=== PATIENT | female | born 1970 | race Hispanic/Latino ===

== ENCOUNTER 2019-10-25 09:26 | Outpatient (CLI) | payer OTHER, SELFPAY ==
--- NOTE | ~2019-10-25 | MM_ITS ---
EXAMINATION: MM screening [facility] BI w symone HISTORY: Screening mammogram TECHNIQUE: Craniocaudal and mediolateral oblique 3-D tomosynthesis images were obtained and synthetic 2-D images were generated. CAD analysis was submitted and interpreted. COMPARISON: 02/22/2018, 02/16/2017, 01/20/2016 BREAST PARENCHYMAL COMPOSITION: The breasts are heterogeneously dense, which may obscure small masses . FINDINGS: There is no evidence of suspicious mass, calcification, or architectural distortion to sugg est malignancy in either breast. There has been no suspicious interval change. IMPRESSION: 1. No mammographic evidence of malignancy. 2. Recommend routine screening mammography in one year. BI-RADS Category 1: Negative Reviewed, dictated and finalized at location A. E PILOT
== END 2019-10-25 09:27 | disposition home or self-care (01) ==
LOC: ANHIMG 09:28
PROVIDERS: PCP Internal Medicine Gastroenterology; Visit Provider Obstetrics & Gynecology Gynecology
DX: Z12.31 Encounter for screening mammogram for malignant neoplasm of breast (principal)
CPT/HCPCS: 77063; 77067

== ENCOUNTER 2019-10-25 10:06 | Outpatient (CLI) | payer OTHER, SELFPAY | END 2019-10-25 10:07 | disposition home or self-care (01) | LOC: ANHAUDIO 10:12 | PROVIDERS: PCP Internal Medicine Gastroenterology | DX: H90.11 Conductive hearing loss, unilateral, right ear, with unrestricted hearing on the contralateral side (principal) | CPT/HCPCS: 92557; 92567 ==

== ENCOUNTER 2019-11-03 12:08 | Emergency (ER) | payer OTHER, SELFPAY ==
--- NOTE | ~2019-11-03 | XR_ITS ---
EXAMINATION: XR lumbar spine min 4V DATE: 11/03/2019 13:33 INDICATION: 2 days of low back pain. TECHNIQUE: Anteroposterior, lateral, and bilateral oblique views of the lumbar spine, and cone-down l ateral view of the lumbosacral junction were obtained. COMPARISON: 02/02/2017 FINDINGS: Normal alignment. Vertebral body and disc heights are normal. No fractures identified. No pars intera rticularis defects. Multilevel bilateral mild lumbar facet osteoarthritis. Sacral arches are intact. Minimal bilateral sacroiliac osteoarthritis. IMPRESSION: 1. Multilevel mild lumbar facet osteoarthritis. No acute osseous abnormality. Reviewed, dictated and finalized at location A. STMENT BANKING MANAGER
[2019-11-03 12:25] VITALS: BP 102/57; PULSE 71; RESP 20; TEMP 37.1; O2SAT 100
[2019-11-03] MEDS: DIAZEPAM 5 MG TABLET PO (13:36)
[2019-11-03] MEDS: KETOROLAC (*BKC) 60 MG/2 ML VIAL IM (13:37)
--- NOTE | 2019-11-03 13:47 | ED.BACK ---
HPI - Back Pain/Injury General Chief Complaint: Back Pain/Injury Stated Complaint: low and mid back pain with leg pain as well Time Seen by Provider: 11/03/19 12:18 Source: patient Mode of arrival: ambulatory Limitations: no limitations History of Present Illness HPI Narrative: Patient is a 49-year-old female who presents to emergency department for evaluation of low back pain for the last several days noting aching pain to the midline lumbar spine that radiates into the bilateral thighs patient denies injury or trauma patient has not taken anything other than ibuprofen for her symptoms patient on arrival presents with normal gait. Related Data Home Medications Medication Instructions Recorded Confirmed ergocalciferol (vitamin D2) 11/03/19 [Vitamin D2] ofloxacin 11/03/19 zolpidem 11/03/19 Allergies Allergy/AdvReac Type Severity Reaction Status Date / Time Penicillins Allergy Unknown Rash Verified 11/03/19 12:36 SEASONAL ALLERGENS AdvReac Unknown Unknown Uncoded 11/03/19 12:36 Review of Systems Review of Systems: All systems reviewed & are unremarkable except as noted in HPI and below PMFSH Surgical History Surgical History (Updated 11/03/19 @ 13:48 by Enzo Fonseca PA-C) History of ear surgery Social History Social History (Updated 11/03/19 @ 13:48 by Enzo Fonseca PA-C) Smoking status: Never smoker Exam Narrative: Exam Narrative: GENERAL: Well-appearing, well-nourished, and in no acute distress. HEAD: Normocephalic, atraumatic. EYES: PERRLA and EOMI. ENT: Nares clear, no rhinorrhea or epistaxis. Mucous membranes moist. CHEST: Clear to auscultation. No respiratory distress. No wheezes rales or rhonchi HEART: Regular rate and rhythm. No murmur heard. EXTREMITIES: Normal range of motion. No edema. Midline lumbar tenderness SKIN: Warm, dry, no rash. NEURO: No focal deficits. Alert and oriented x3. Normal speech and gait. Motor and sensory intact and symmetrical in the extremities PSYCH: Normal mood and affect. Course Course Emergency Course: Patient in the room in no distress aware of case findings treatment plan and diagnosis Vital Signs Vital signs: Vital Signs Temperature 98.7 F 11/03/19 12:25 Pulse Rate 71 11/03/19 12:25 Respiratory Rate 20 11/03/19 12:25 Blood Pressure 102/57 L 11/03/19 12:25 Pulse Oximetry 100 11/03/19 12:25 Temperature 98.7 F 11/03/19 12:25 Pulse Rate 71 11/03/19 12:25 Respiratory Rate 20 11/03/19 12:25 Blood Pressure 102/57 L 11/03/19 12:25 Pulse Oximetry 100 11/03/19 12:25 MDM - Back Pain/Injury MDM Narrative Medical decision making narrative: Patients pain is positional in nature and localized to back without signs of cord compression or cauda equina based on neurological exam, skeletal exam and history. No fever or other significant factors to suggest osteomyelitis or spinal epidural abscess. No symptoms or signs to suggest pain is referred from abdominal or / cardiopulmonary sources. No pulsatile masses noted on exam. Patient ambulates with steady gait and is stable for outpatient management given case findings. Discharge Plan Discharge Clinical Impression: Strain of lumbar region Patient Disposition: Home, Self-Care Condition: Stable Instructions: Antibiotic Form, Acute Low Back Pain (ED) Additional Instructions: Medications as needed and prescribed. Limit lifting and bending. You may apply heat or cold to the area as needed. Follow up with your doctor for further care in the next 7 days. Contact your doctor or return to the emergency department if you develop problems with bladder or bowel function, weakness or loss of feeling in one or both of your legs, or any other serious concerns. Prescriptions: New cyclobenzaprine 10 mg tablet 10 mg PO TID PRN (Reason: muscle spasm) Qty: 14 RF: 0 naproxen 500 mg tablet 500 mg PO BID PRN (Reason: pain) Qty: 7 RF: 0 No Action
== END 2019-11-03 14:30 | disposition home or self-care (01) ==
PROVIDERS: Emergency Provider Emergency Medicine; PCP Internal Medicine Gastroenterology
DX: S39.012A Strain of muscle, fascia and tendon of lower back, initial encounter (principal); X58.XXXA Exposure to other specified factors, initial encounter
CPT/HCPCS: 72110; 96372; 99283; A9270; J1885

== ENCOUNTER 2020-01-20 14:00 | Outpatient (RCR) | payer OTHER, SELFPAY ==
--- NOTE | 2019-12-10 14:29 | PTOPEVAL ---
Thank you for referring this patient to [facility]. Please review, sign, date and return this plan of care CRISTINA. Pt referred to therapy due to back pain. She demonstrates limited and painful trunk motion, muscle weakness of hip and trunk muscles, posture and gt impairments and soft tissue restrictions. She requires additional skilled therapy 2x/wk x 6 wk. I agree with and certify that the following plan of care is medically necessary. Referring Physician Date Attending Provider: Bonita Barba, Referring Provider: *PT Outpatient Evaluation Start: 12/10/19 13:12 Freq: Status: Active Protocol: Document 12/10/19 13:12 [facility] (Rec: 12/10/19 13:56 [facility] [email or web address]) Therapy Assessment Status Assessment Status Assessment Status Evaluation Outpatient Past Medical History Past Medical History Source of Past Medical History Patient,Recalled from Previous Visit, Confirmed with Patient /Family Neurological History Hx Neurological Disorders No Significant History Cardiovascular History Hx Cardiac Disorders No Significant History Gastrointestinal History Hx Gastroesophageal Reflux Disease Yes Musculoskeletal History Hx Back Pain Yes: back and neck pain HEENT History Hx Ear Surgery Yes: x3 Reproductive History Hx Section Yes: x2 Pain History Has Past Pain Affected Your Daily Life Yes Evaluation Information Problem Diagnosis low back pain Onset 08/06 Cause no known injury Additional Evaluation Detail She has received previous therapy for her neck. Inconsistently performs HEP for the neck. Subjective Information Pt was seen in the Ed 11/07 due Query Text:As Reported By Patient/ to increased back pain. She Family reports increased pain with prolonged standing and sitting . She will have increased pain at time with walking. Bending and lifting objects increases her pain. She is able to stand for 2-3 hours then her pain increases. She uses medication as her primary method of managing her pain. The pain will wake her at night. She prefers sidelying sleeping, but often sleeps on her back due to pain. She performs a regular walking program 3-4x/wk for 1 mile.
--- NOTE | 2019-12-26 14:55 | PCPTNOTE ---
Patient called & cancelled scheduled appointment after an hour appointment was scheduled stating she forgot what time her appointment was. Will return for next appointment.
--- NOTE | 2020-01-07 16:24 | PTOPEVAL ---
Thank you for referring Yaritza Tejada to [facility]. Please review, sign, date and return this plan of care CRISTINA. Pt has been seen for 8 PT visits to address her chronic back pain. She is progressing towards her therapy goals with improved trunk motion, improve LE and trunk strength and improved tolerance with daily activities. Cont PT 2x/wk x 3 wk to achieve max function. I agree with and certify that the following plan of care is medically necessary. Referring Physician Date Attending Provider: Bonita Barba, Referring Provider: *PT Outpatient Evaluation Start: 12/10/19 13:12 Freq: Status: Active Protocol: Document 01/07/20 09:03 [facility] (Rec: 01/07/20 09:37 [facility] [email or web address]) Therapy Assessment Status Assessment Status Assessment Status Re-evaluation Evaluation Information Problem Diagnosis low back pain Onset 08/06 Cause no known injury Additional Evaluation Detail She has received previous therapy for her neck. Inconsistently performs HEP for the neck. Subjective Information States her muscles are sore Query Text:As Reported By Patient/ from the new exercises. She Family reports improved eran with sitting, standing and walking activities. She is not performing endurance walking outside of walking for household activities. She will have intermittent pain with lifting objects. 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 Reports left lateral/post knee pain at time with different movement, unsure if it is associated with back motion She is performing her HEP daily. Pain Assessment Timing of Pain Assessment Timing of Pain Assessment Re-assessment Pain Scale Pain Scale Used Numeric (1 - 10) Self Report Pain Assessment Bilateral Lower Back Reported Pain Level 4 Pain Description Aching,Sharp,Tender on Palpation Pain Frequency Chronic,Continuous Lowest Pain Intensity 3 Greatest Pain Intensity 4 Pain Aggravating Factors Changing Position Pain Behaviors None Pain Score Pain Score 4: Self Report Cervical and Lumbar ROM Lumbar ROM Lumbar Flexion Active
--- NOTE | 2020-01-21 12:39 | PTOPEVAL ---
Thank you for referring Yaritza Tejada to [facility]. Please review, sign, date and return this plan of care CRISTINA. Pt has received 12 therapy visits to address back pain. She is indep with a HEP. She demonstrates normal trunk motion and LE strength. She is able to perform her daily activities without increased pain. DC skilled therapy at this time. I agree with and certify that the following plan of care is medically necessary. Referring Physician Date Attending Provider: Bonita Barba, Referring Provider: Discharge Summary *PT Outpatient Evaluation Start: 12/10/19 13:12 Freq: Status: Active Protocol: Document 01/20/20 13:57 [facility] (Rec: 01/20/20 14:38 [facility] [email or web address]) Therapy Assessment Status Assessment Status Assessment Status Re-evaluation Evaluation Information Problem Diagnosis low back pain Onset 08/06 Cause no known injury Additional Evaluation Detail She has received previous therapy for her neck. Inconsistently performs HEP for the neck. Subjective Information States her pain intensity is Query Text:As Reported By Patient/ not as severe or as frequent. Family She notes increased pain with prolonged standing. She is not working right now, therefore her prolonged standing for 4-5 hours is limited. There are times she notes no pain at all. She is better aware of her body mechanics. She reports intermittent back pain with trunk motion, lifting and carrying act. States shoulder pain with side planks exercise. She reports increased left shoulder pain with reaching act. She is performing her HEP daily. She is performing a walking program 3-4x/wk for 20 minutes. States pain will at times go up to a 6/10. She reports at times she has severe leg and back pain with daily activities that require assistance with movement. Pt describes vague symptoms into LE with an occasional numbness into legs, but unable to
== END 2020-01-22 09:03 | disposition home or self-care (01) ==
LOC: ANHPT 14:00
PROVIDERS: PCP Internal Medicine Gastroenterology; Visit Provider Internal Medicine Gastroenterology
DX: M54.5 Low back pain (principal)
CPT/HCPCS: 97014; 97110; 97140; 97162; G0283

== ENCOUNTER 2020-11-11 18:30 | Outpatient (CLI) | payer OTHER, SELFPAY ==
--- NOTE | ~2020-11-11 | XR_ITS ---
EXAMINATION: XR shoulder RT min 2V DATE: 11/11/2020 18:55 INDICATION: Right shoulder pain. TECHNIQUE: 4 views of right shoulder were obtained. COMPARISON: None. FINDINGS: Bone alignment is normal. No fracture. Glenohumeral joint is normal. There is mild acromioc lavicular joint osteoarthritis. IMPRESSION: 1. Mild right acromioclavicular joint osteoarthritis. Reviewed, dictated and finalized at location A. TANK WORKER
--- NOTE | ~2020-11-11 | XR_ITS ---
EXAMINATION: XR shoulder LT min 2V DATE: 11/11/2020 18:55 INDICATION: Left shoulder pain. TECHNIQUE: 4 views of left shoulder were obtained. COMPARISON: None. FINDINGS: Bone alignment is normal. No fracture. Glenohumeral joint is normal. There is mild acromioc lavicular joint osteoarthritis. IMPRESSION: 1. Mild left acromioclavicular joint osteoarthritis. Reviewed, dictated and finalized at location A. SPORT MANAGER
== END 2020-11-11 18:31 | disposition home or self-care (01) ==
PROVIDERS: PCP Internal Medicine Gastroenterology; Visit Provider Internal Medicine Gastroenterology
DX: M19.012 Primary osteoarthritis, left shoulder (principal); M19.011 Primary osteoarthritis, right shoulder
CPT/HCPCS: 73030

== ENCOUNTER 2020-11-16 08:54 | Outpatient (CLI) | payer OTHER, SELFPAY ==
--- NOTE | ~2020-11-16 | MM_ITS ---
EXAMINATION: MM screening [facility] BI w symone HISTORY: Screening TECHNIQUE: Craniocaudal and mediolateral oblique 3-D tomosynthesis images were obtained and synthetic 2-D images were generated. CAD analysis was submitted and interpreted. COMPARISON: Comparison to multiple prior studies sequentially, with oldest reviewed study dated 05/2013. BREAST PARENCHYMAL COMPOSITION: The breasts are heterogeneously dense, which may obscure small masses . FINDINGS: There is no evidence of suspicious mass, calcification, or architectural distortion to sugg est malignancy in either breast. There has been no suspicious interval change. IMPRESSION: 1. No mammographic evidence of malignancy. 2. Recommend routine screening mammography in one year. BI-RADS Category 1: Negative Reviewed, dictated and finalized at location A. NTIFIC EDITOR
== END 2020-11-16 08:55 | disposition home or self-care (01) ==
LOC: ANHIMG 08:58
PROVIDERS: PCP Internal Medicine Gastroenterology; Visit Provider Obstetrics & Gynecology Gynecology
DX: Z12.31 Encounter for screening mammogram for malignant neoplasm of breast (principal)
CPT/HCPCS: 77063; 77067

== ENCOUNTER 2021-10-05 15:10 | Emergency (ER) | payer OTHER, SELFPAY ==
[2021-10-05 15:20] VITALS: BP 117/64; PULSE 82; RESP 16; TEMP 37.1; O2SAT 98
--- NOTE | 2021-10-05 15:21 | ED.URI ---
HPI - URI/Sore Throat General Chief Complaint: Upper Respiratory Infection Stated Complaint: Headache,Sore throat Time Seen by Provider: 10/05/21 15:21 Source: patient, RN notes reviewed and old records reviewed Mode of arrival: ambulatory Limitations: no limitations History of Present Illness HPI Narrative: 51-year-old female presents to the [facility] with complaints of a headache, body aches and a sore throat for the last few days. Has taken Tylenol but still not feeling better. States she had a fever couple of days ago. Patient is not flu nor COVID vaccinated MD elicited complaint: sore throat Related Data Home Medications Medication Instructions Recorded Confirmed ergocalciferol (vitamin D2) 11/03/19 [Vitamin D2] zolpidem 11/03/19 bromocriptine mg 10/05/21 Allergies Allergy/AdvReac Type Severity Reaction Status Date / Time Penicillins Allergy Unknown Rash Verified 11/03/19 12:36 SEASONAL ALLERGENS AdvReac Unknown Unknown Uncoded 11/03/19 12:36 Review of Systems Review of Systems: All systems reviewed & are unremarkable except as noted in HPI and below Constitutional: Constitutional: Reports as per HPI, Denies chills, Reports fatigue, Denies fever(s) and Denies headache(s) Eyes: Eyes: Reports no additional eye complaints ENT: Reports as per HPI, Denies vertigo, Denies dizziness, Denies headache(s), Denies nasal congestion and Reports sore throat Cardiovascular: Cardiovascular: Reports no additional cardiovascular complaints, Denies chest pain, Denies syncope, Denies rapid heart rate and Denies dyspnea Respiratory: Respiratory: Reports no additional respiratory complaints, Denies cough, Denies dyspnea and Denies wheezing Gastrointestinal: Gastrointestinal: Reports no additional gastrointestinal complaints, Denies abdominal pain, Denies diarrhea, Denies nausea and Denies vomiting Musculoskeletal: Musculoskeletal: Reports as per HPI, Denies back pain, Reports myalgias and Denies numbness Integumentary/Breasts: Skin/Breast: Reports system reviewed and no additional complaints, except as docu and Denies rash Neurologic: Reports system reviewed and no additional complaints, except as documented, Denies vertigo, Denies dizziness, Denies syncope, Denies headache(s), Denies focal weakness and Denies numbness Psychiatric: Psychiatric: Reports no additional psychiatric complaints Allergic/Immunologic: Allergic/Immunologic: Reports no additional allergic/immunologic complaints and Denies wheezing PMFSH Past Medical History Medical History Vitamin D deficiency Surgical History Surgical History History of ear surgery Social History Social History Smoking status: Never smoker Comments At the time of my signature, I reviewed and agree with the nursing past medical, surgical, social, and family history. There is no relevant family history pertinent to the patient complaint. Exam Const: General: cooperative, no acute distress, well developed, alert and ill appearing acutely (mild) Nutritional Appearance: well nourished Orientation/consciousness: patient oriented x3 Limitations: no limitations HENMT: Head: normal to inspection Ears: external ears normal, TM's normal bilaterally and EAC's normal General nose exam: Normal external nose present, Normal nares present and Normal nasal mucous membranes and turbinates present Face and sinus: normal facial exam Mouth: Yes Normal oral and palatal mucosa present and Yes moist mucous membranes Throat: posterior oropharynx normal, tonsils normal, uvula midline and no uvular edema Eyes: Conjunctivae: conjunctivae normal Pupils: Equal, round and reactive pupils present Neck: Neck: normal visual inspection, no lymphadenopathy and no meningeal signs Chest: Chest palpation & inspection: normal inspection of the chest Resp:
[2021-10-05 15:22] VITALS: BP 117/64; PULSE 82; RESP 16; TEMP 37.1; O2SAT 98
--- NOTE | 2021-10-05 15:45 | PC.NURSE ---
1537 anius called for spec. p/u
[2021-10-06 21:10] LABS: SARS-CoV-2 RNA PCR Positive
== END 2021-10-05 15:57 | disposition home or self-care (01) ==
PROVIDERS: Emergency Provider Nurse Practitioner; PCP Internal Medicine Gastroenterology
DX: U07.1 COVID-19 (principal); E55.9 Vitamin D deficiency, unspecified
CPT/HCPCS: 87804; 87880; 99213; C9803; G0463; U0003; U0005

== ENCOUNTER 2021-10-07 17:57 | Emergency (ER) | payer OTHER, SELFPAY ==
[2021-10-07] VITALS (7 sets, daily range): BP systolic 102–120; BP diastolic 55–67; PULSE 82–89; RESP 16–23; TEMP 37.2; O2SAT 95–100
--- NOTE | ~2021-10-07 | XR_ITS ---
EXAMINATION: XR chest 1V portable INDICATION: Shortness of breath, COVID 19 TECHNIQUE: Portable AP chest at 2126 hours COMPARISON: None available FINDINGS: There are patchy airspace opacities throughout all lung zones. There is no pleural effusion or pneumothorax. The cardiomediastinal silhouette is normal. IMPRESSION: 1. Diffuse lung disease in a pattern consistent with COVID 19 pneumonia. Reviewed, dictated and finalized at location F. STOCK DEALER
--- NOTE | 2021-10-07 20:41 | ECG_ITS ---
Measurements Intervals [place] Rate: 82 P: 47 [place]: 135 QRS: 39 QRSD: 111 T: 46 QT: 357 QTc: 419 Interpretive Statements SINUS RHYTHM POSSIBLE LEFT ATRIAL ENLARGEMENT INCOMPLETE RIGHT BUNDLE BRANCH BLOCK BORDERLINE T WAVE ABNORMALITY- ANTERIOR LEADS BASELINE ARTIFACT- I, II, III, AVR, AVL, AVF, V1, V3-V6 BORDERLINE ECG Electronically Signed On 10-11-2021 12:57:34 BILLER by Benjamin Gonzalez D.O.
--- NOTE | 2021-10-07 21:09 | ED.GENADULT ---
HPI - General Adult General Chief complaint: Upper Respiratory Infection Stated complaint: STREP AND COVID+ Time Seen by Provider: 10/07/21 20:53 Source: patient Mode of arrival: ambulatory Limitations: no limitations History of Present Illness HPI narrative: Patient is 51 years old, unvaccinated, tested positive for COVID today. Patient presents with general body aches, not feeling well, headache, sore throat, coughin, nausea, vomiting once today. Patient had a diagnosis of strep throat 2 days ago and was a started on Z-Cas. Patient denies any shortness of breath or chest pain. Related Data Home Medications Medication Instructions Recorded Confirmed ergocalciferol (vitamin D2) 11/03/19 [Vitamin D2] zolpidem 11/03/19 bromocriptine mg 10/05/21 Allergies Allergy/AdvReac Type Severity Reaction Status Date / Time Penicillins Allergy Unknown Rash Verified 10/07/21 20:20 SEASONAL ALLERGENS AdvReac Unknown Unknown Uncoded 10/07/21 20:20 Review of Systems Review of Systems: CONSTITUTIONAL: Denies fever, chills, or sweats. EYES: Denies visual changes, redness, or discharge. ENT: Denies rhinorrhea, congestion, sore throat, or otalgia. CARDIOVASCULAR: Denies chest pain, palpitations, or edema. RESPIRATORY: Denies cough or dyspnea. GASTROINTESTINAL: Denies abdominal pain, nausea, vomiting, or diarrhea. GENITOURINARY: Denies dysuria or hematuria. SKIN: Denies rash or itching. MUSCULOSKELETAL: Denies back pain, joint pain, or myalgia. NEUROLOGIC: Denies headache, numbness, or weakness. PSYCHIATRIC: Denies anxiety or depression. PMFSH Past Medical History Medical History Vitamin D deficiency Surgical History Surgical History History of ear surgery Social History Social History Smoking status: Never smoker Exam Narrative: General appearance: Well-developed, well-nourished Skin: Normal color Head: Normocephalic, nontraumatic Eyes: Clear conjunctiva ENT: Oropharynx normal, ears normal, nose normal Neck: Supple, nontender Chest and respiratory: Airway patent, no respiratory distress, no accessory muscle use Heart: Regular rate/rhythm Abdomen: Soft, nontender, no organomegaly, quiet bowel sounds Vascular: Normal peripheral pulses, normal capillary refill. Musculoskeletal: Normal range of motion, nontender back Neurologic: Alert and oriented ?3, RESPIRATORY CARE PRACTITIONER is normal as tested, no gross motor deficit Course Course Emergency Course: Stable Vital Signs Vital signs: Vital Signs Temperature 37.2 C 10/07/21 18:07 Pulse Rate 89 10/07/21 18:07 Respiratory Rate 18 10/07/21 18:07 Blood Pressure 108/67 10/07/21 18:07 Pulse Oximetry 99 10/07/21 18:07 Temperature 37.2 C 10/07/21 18:07 Pulse Rate 83 10/07/21 22:46 Respiratory Rate 16 10/07/21 22:46 Blood Pressure 109/63 10/07/21 22:46 Pulse Oximetry 95 10/07/21 22:46 Medical Decision Making Vital Signs Vital Signs: Vital Signs Temperature 37.2 C 10/07/21 18:07 Pulse Rate 89 10/07/21 18:07 Respiratory Rate 18 10/07/21 18:07 Blood Pressure 108/67 10/07/21 18:07 Pulse Oximetry 99 10/07/21 18:07 Temperature 37.2 C 10/07/21 18:07 Pulse Rate 83 10/07/21 22:46 Respiratory Rate 16 10/07/21 22:46 Blood Pressure 109/63 10/07/21 22:46 Pulse Oximetry 95 10/07/21 22:46 ABG Data ABG results: 10/07/21 22:15 Puncture Site Right brachial ABG pH 7.500 H ABG pCO2 29.9 L ABG pO2 83.7 ABG PO2/FiO2 Ratio 3.99 ABG HCO3 22.8 ABG O2 Saturation 97.1 ABG O2 C
[2021-10-07 22:36] LABS: Alveolar/Arterial O2 Gradient 30.2 mmHg; Base Excess ABG 0.5 mEq/l (+/-2.0); Fractional Inspired Oxygen 21 %; HCO3 ABG 22.8 mEq/l (22.0-26.0); Modified Allen's Test Pass; Oxygen Content ABG 17.2 %vol (16.0-22.0); Oxygen Saturation ABG 97.1 % (95.0-100.0); Oxyhemoglobin 95.8 % THb (90.0-100.0); PCO2 ABG 29.9 mmHg (35.0-45.0); PO2 ABG 83.7 mmHg (80.0-100.0); PO2 FiO2 Ratio Arterial Blood 3.99 %; Site Drawn RIGHT BRACHIAL; Total Hemoglobin 12.7 g/dL (12.0-18.0)
[2021-10-07 22:37] LABS: Device ROOM AIR
== END 2021-10-07 23:50 | disposition home or self-care (01) ==
PROVIDERS: Emergency Provider Emergency Medicine; PCP Internal Medicine Gastroenterology
DX: U07.1 COVID-19 (principal); J12.82 Pneumonia due to coronavirus disease 2019
CPT/HCPCS: 36600; 71045; 82805; 93005; 99283

== ENCOUNTER 2022-01-19 11:57 | Outpatient (CLI) | payer OTHER, SELFPAY ==
--- NOTE | ~2022-01-19 | MM_ITS ---
EXAMINATION: MM screening [facility] BI w symone HISTORY: Screening mammogram TECHNIQUE: Craniocaudal and mediolateral oblique 3-D tomosynthesis images were obtained and synthetic 2-D images were generated. CAD analysis was submitted and interpreted. COMPARISON: 11/16/2020, 10/25/2019, 02/22/2018 bilateral screening mammogram examinations BREAST PARENCHYMAL COMPOSITION: The breasts are heterogeneously dense, which may obscure small masses . FINDINGS: There is no evidence of suspicious mass, calcification, or architectural distortion to sugg est malignancy in either breast. There has been no suspicious interval change. IMPRESSION: 1. No mammographic evidence of malignancy. 2. Recommend routine screening mammography in one year. BI-RADS Category 1: Negative Reviewed, dictated and finalized at location A.
== END 2022-01-19 11:58 | disposition home or self-care (01) ==
LOC: ANHIMG 11:59
PROVIDERS: PCP Internal Medicine Gastroenterology; Visit Provider Obstetrics & Gynecology Gynecology
DX: Z12.31 Encounter for screening mammogram for malignant neoplasm of breast (principal)
CPT/HCPCS: 77063; 77067

== ENCOUNTER 2022-08-07 14:24 | Emergency (ER) | payer OTHER, SELFPAY ==
[2022-08-07 16:15] VITALS: BP 111/50; PULSE 73; RESP 12; TEMP 36.5; O2SAT 100
--- NOTE | 2022-08-07 16:30 | ED.GENADULT ---
HPI - General Adult General Chief complaint: Upper Respiratory Infection Stated complaint: uri Time Seen by Provider: 08/07/22 16:30 Source: patient Mode of arrival: ambulatory Limitations: no limitations History of Present Illness HPI narrative: 51-year-old female patient presents to the [facility] with complaints of right ear pain, sore throat and runny nose. Patient states she has had some right ear pain drainage that started yesterday. Patient states she has had cold symptoms for about a week but recently just started having right ear pain. Patient states she has had surgery to the right ear before in the past. Patient denies any fevers, body aches or chills. Related Data Home Medications Medication Instructions Recorded Confirmed ergocalciferol (vitamin D2) 1,250 1,250 mcg PO WEEKLY 11/03/19 08/07/22 mcg (50,000 unit) capsule (Vitamin D2) zolpidem 5 mg tablet 5 mg PO DAILY 11/03/19 08/07/22 bromocriptine 2.5 mg tablet 2.5 mg PO DAILY 10/05/21 08/07/22 Allergies Allergy/AdvReac Type Severity Reaction Status Date / Time Penicillins Allergy Intermediate Rash Verified 08/07/22 16:07 Review of Systems Review of Systems: CONSTITUTIONAL: Denies fever, chills, or sweats. EYES: Denies visual changes, redness, or discharge. ENT: Denies rhinorrhea, congestion, sore throat, positive right ear pain. CARDIOVASCULAR: Denies chest pain, palpitations, or edema. RESPIRATORY: Denies cough or dyspnea. GASTROINTESTINAL: Denies abdominal pain, nausea, vomiting, or diarrhea. GENITOURINARY: Denies dysuria or hematuria. SKIN: Denies rash or itching. MUSCULOSKELETAL: Denies back pain, joint pain, or myalgia. NEUROLOGIC: Denies headache, numbness, or weakness. PSYCHIATRIC: Denies anxiety or depression. PENDING SALE TO [facility] Past Medical History Medical History Vitamin D deficiency Surgical History Surgical History History of ear surgery Social History Social History Smoking status: Never smoker Comments At the time of my signature I agree with nursing past medical history, surgical, social, and family history. There is no relevant family history pertinent to the presenting complaint. Exam Narrative: GENERAL: Well-appearing, well-nourished, and in no acute distress. HEAD: Normocephalic, atraumatic. EYES: PERRLA and EOMI. ENT: Nares clear, no rhinorrhea or epistaxis. Mucous membranes moist. Posterior pharynx with no erythema, tonsillar enlargement, exudates or lesions present. The right ear does have some pus in the canal with some erythema and pus noted behind the TM. NECK: Supple. No lymphadenopathy CHEST: Clear to auscultation. No respiratory distress. HEART: Regular rate and rhythm. No murmur heard. Normal peripheral pulses. ABDOMEN: Soft, nontender, nondistended, normal active bowel sounds. EXTREMITIES: Normal range of motion. No edema. SKIN: Warm, dry, no rash. NEURO: No focal deficits. Alert and oriented x3. Course Course Level of Care: Express Care Visit Vital Signs Vital signs: Vital Signs Temperature 36.5 C 08/07/22 16:15 Pulse Rate 73 08/07/22 16:15 Respiratory Rate 12 08/07/22 16:15 Blood Pressure 111/50 L 08/07/22 16:15 Pulse Oximetry 100 08/07/22 16:15 Temperature 36.5 C 08/07/22 16:15 Pulse Rate 73 08/07/22 16:15 Respiratory Rate 12 08/07/22 16:15 Blood Pressure 111/50 L 08/07/22 16:15 Pulse Oximetry 100 08/07/22 16:15 Vital signs reviewed. Medical Decision Making MDM Narrative Medical decision making narrative: Discussed with patient does appear that she has not enter into an outer ear infection of the right ear. Plan of care for patient is discharge home with antibiotic ear drops and oral antibiotic. Discussed with patient she can take Tylenol and ibuprofen as needed for pain. Discussed with patient a
== END 2022-08-07 16:46 | disposition home or self-care (01) ==
PROVIDERS: Emergency Provider Nurse Practitioner Family; PCP Internal Medicine Gastroenterology
DX: H66.91 Otitis media, unspecified, right ear (principal); H60.91 Unspecified otitis externa, right ear; E55.9 Vitamin D deficiency, unspecified
CPT/HCPCS: 99213; G0463

== ENCOUNTER 2022-12-30 09:11 | Outpatient (CLI) | payer OTHER, SELFPAY ==
--- NOTE | ~2022-12-30 | CT_ITS ---
EXAMINATION: CT IAC/mastoids BI wo con DATE: 12/30/2022 09:35 INDICATION: Bilateral hearing loss. TECHNIQUE: Computed tomography (CT) of the temporal bones was performed without intravenous contrast. Automated exposure control and iterative reconstruction technique were employed. The dose-length pro duct was 335.94 mGy-cm. COMPARISON: Head CT 10/11/2016 FINDINGS: RIGHT TEMPORAL BONE: The internal auditory canal, cochlea, vestibule, and circular canals, vestibular aqueduct, carotid ca nal, jugular bulb, and facial nerve course is normal. There is complete opacification of the right ma stoid air cells, which are small. There is material in the tympanic cavity including around the ossic les and in Prussak space. There is a 3 mm density that is contiguous with hamate at the inferior aspe ct of the ossicles. There is dehiscence of tegmen tympani. There is thickening of the tympanic membra ne. The external auditory canal is normal. LEFT TEMPORAL BONE: The internal auditory canals, cochlea, vestibule, semicircular canals, vestibular aqueduct, carotid c anal, jugular bulb, facial nerve course, ossicles, tympanic membrane, Prussak space, scutum, external auditory canal, and the mastoid air cells are normal. IMPRESSION: 1. Chronic right-sided otomastoid effusion. 2. 3 mm density that is contiguous with hamate at the inferior aspect of the ossicles, which may be h eterotopic ossification. 3. Normal left temporal bone. Reviewed, dictated and finalized at location A. IMPRESSION: 1. Chronic right-sided otomastoid effusion. 2. 3 mm density that is contiguous with hamate at the inferior aspect of the os sicles, which may be heterotopic ossification. 3. Normal left temporal bone.
== END 2022-12-30 09:12 | disposition home or self-care (01) ==
PROVIDERS: PCP Internal Medicine Gastroenterology; Visit Provider Nurse Practitioner Family
DX: H74.8X1 Other specified disorders of right middle ear and mastoid (principal)
CPT/HCPCS: 70480

== ENCOUNTER 2023-01-24 01:51 | Day surgery (SDC) | payer OTHER, SELFPAY ==
[2023-01-12 11:26] VITALS: BMI 25.6
[2023-01-24 11:38] VITALS: BP 126/50; PULSE 83; RESP 16; TEMP 36.4; O2SAT 100
[2023-01-24] MEDS: LACTATED RINGERS 1,000 ML 150 ML IV CONT (11:44)
--- NOTE | 2023-01-24 11:44 | P.HP_ITS ---
History of Present Illness History of Present Illness Consent: Risks, benefits, and alternatives have been discussed and questions answered. Patient agrees to proceed with procedure. Chief complaint: other fecal abnormalities Narrative: Yaritza Erickson is a 52 year old female Presents for colonoscopy. Patient recently had Cologuard test that was found to be positive. Patient denies any obvious blood in her stools. Her bowel habits apparently are normal. She has occasional bloating. Family history noncontributory. Review of Systems Review of Systems: Review of systems noncontributory. [facility] Past Medical History Medical History Vitamin D deficiency Surgical History Surgical History History of ear surgery Social History Social History Smoking status: Never smoker Meds Home Medications and Allergies Home Medications Medication Instructions Recorded Confirmed Type ergocalciferol (vitamin D2) 1,250 1,250 mcg PO WEEKLY 11/03/19 01/12/23 History mcg (50,000 unit) capsule (Vitamin D2) zolpidem 5 mg tablet (Ambien) 5 mg PO DAILY 11/03/19 01/12/23 History bromocriptine 2.5 mg tablet 2.5 mg PO DAILY 10/05/21 01/12/23 History ofloxacin 0.3 % ear drops 10 drp RIGHT EAR DAILY 7 days #10 08/07/22 01/12/23 Rx mL Allergies Allergy/AdvReac Type Severity Reaction Status Date / Time Penicillins Allergy Intermediate Rash Verified 01/24/23 11:37 Vital Signs Vital Signs - 24 hr 01/24/23 11:38 Temperature 97.6 F Pulse Rate 83 Respiratory Rate 16 Blood Pressure 126/50 L Pulse Oximetry 100 Oxygen Delivery Room Air Exam Narrative: Physical exam reveals patient be alert. Vital signs stable. HEENT exam is unremarkable. Patient is anicteric. Lungs are clear to auscultation and percussion. Heart is without murmur or extra sounds. Abdomen bowel sounds are present soft nontender with no organomegaly. Digital external rectal exam is normal. Assessment and Plan Assessment and plan (1) Positive colorectal cancer screening using Cologuard test: Code(s): R19.5 - Other fecal abnormalities Status: Acute Assessment and Plan: Patient's Cologuard screening test was positive. For this reason colonoscopy will be performed today.
--- NOTE | 2023-01-24 11:49 | P.PNAN_ITS ---
Anes - Initial Pre Proc Eval Procedure: Operation Date: 01/24/23 13:00 Proposed Procedures p Colonoscopy - Connor Zavala MD Date/Time: 01/24/23 11:49 Surgeon: Connor Zavala MD Pre Op Diagnosis: other fecal abnormalities Patient Data Age: 52 Gender: F Height: 1.57 m Weight: 62.2 kg Last Vital Signs Temp 97.6 F 01/24/23 11:38 Pulse 83 01/24/23 11:38 Resp 16 01/24/23 11:38 BP 126/50 L 01/24/23 11:38 Pulse Ox 100 01/24/23 11:38 O2 Del Method Room Air 01/24/23 11:38 Allergies Allergy/AdvReac Type Severity Reaction Status Date / Time Penicillins Allergy Intermediate Rash Verified 01/24/23 11:37 Home Medications Medication Instructions Recorded Confirmed Type ergocalciferol (vitamin D2) 1,250 1,250 mcg PO WEEKLY 11/03/19 01/12/23 History mcg (50,000 unit) capsule (Vitamin D2) zolpidem 5 mg tablet (Ambien) 5 mg PO DAILY 11/03/19 01/12/23 History bromocriptine 2.5 mg tablet 2.5 mg PO DAILY 10/05/21 01/12/23 History ofloxacin 0.3 % ear drops 10 drp RIGHT EAR DAILY 7 days #10 08/07/22 01/12/23 Rx mL Patient hx anesthesia problems: none Family hx anesthesia problems: none Results Review: All pre-operative results and documents have been reviewed as part of the pre- operative evaluation. [facility] Past Medical History Medical History Vitamin D deficiency Surgical History Surgical History History of ear surgery Social History Social History Smoking status: Never smoker Anes - Eval Final PreProcedure Day of Procedure 01/24/23 11:49 Patient weight: normal Heart: regular rate and rhythm Lungs: clear to auscultation Airway: Mallampati scale class II Neurological: alert and oriented Last oral intake: >/= 8 hours ASA classification: II Emergent: no Anesthetic plan: proceed Anesthesia type and monitoring: general GIVS and standard monitoring Results Review: All pre-operative results and documents have been reviewed as part of the pre- operative evaluation. Informed Consent: The patient's anesthetic plan and its attendant risks and benefits were discussed with the patient/family/POA. Questions were solicited and answers provided to the satisfaction of the patient/family/POA.
--- NOTE | 2023-01-24 11:55 | WPDANESEPPF ---
Anes - Initial Pre Proc Eval Procedure: Operation Date: 01/24/23 13:00 Proposed Procedures p Colonoscopy - Connor Zavala MD Date/Time: 01/24/23 11:55 Surgeon: Connor Zavala MD Pre Op Diagnosis: other fecal abnormalities Patient Data Age: 52 Gender: F Height: 1.57 m Weight: 62.2 kg Last Vital Signs Temp 97.6 F 01/24/23 11:38 Pulse 83 01/24/23 11:38 Resp 16 01/24/23 11:38 BP 126/50 L 01/24/23 11:38 Pulse Ox 100 01/24/23 11:38 O2 Del Method Room Air 01/24/23 11:38 Allergies Allergy/AdvReac Type Severity Reaction Status Date / Time Penicillins Allergy Intermediate Rash Verified 01/24/23 11:37 Home Medications Medication Instructions Recorded Confirmed Type ergocalciferol (vitamin D2) 1,250 1,250 mcg PO WEEKLY 11/03/19 01/12/23 History mcg (50,000 unit) capsule (Vitamin D2) zolpidem 5 mg tablet (Ambien) 5 mg PO DAILY 11/03/19 01/12/23 History bromocriptine 2.5 mg tablet 2.5 mg PO DAILY 10/05/21 01/12/23 History ofloxacin 0.3 % ear drops 10 drp RIGHT EAR DAILY 7 days #10 08/07/22 01/12/23 Rx mL Patient hx anesthesia problems: none Family hx anesthesia problems: none Results Review: All pre-operative results and documents have been reviewed as part of the pre-operative evaluation. [facility] Past Medical History Medical History Vitamin D deficiency Surgical History Surgical History History of ear surgery Social History Social History Smoking status: Never smoker Anes - Eval Final PreProcedure Day of Procedure 01/24/23 11:55 Patient weight: normal Heart: regular rate and rhythm Lungs: clear to auscultation Airway: Mallampati scale class II Neurological: alert and oriented Last oral intake: >/= 8 hours ASA classification: II Emergent: no Anesthetic plan: proceed Anesthesia type and monitoring: general GIVS and standard monitoring Results Review: All pre-operative results and documents have been reviewed as part of the pre-operative evaluation. Informed Consent: The patient's anesthetic plan and its attendant risks and benefits were discussed with the patient/family/POA. Questions were solicited and answers provided to the satisfaction of the patient/family/POA.
[2023-01-24 12:32] VITALS: BP 79/41; PULSE 76; RESP 16; O2SAT 99
[2023-01-24 12:42] VITALS: BP 101/59; PULSE 80; RESP 18; O2SAT 99
[2023-01-24 12:52] VITALS: BP 106/62; PULSE 80; RESP 18; O2SAT 99
== END 2023-01-24 12:58 | disposition home or self-care (01) ==
PROVIDERS: PCP Internal Medicine Gastroenterology; Referring Provider Obstetrics & Gynecology Gynecology; Visit Provider Internal Medicine Gastroenterology
PROC: 0DJD8ZZ Inspection of Lower Intestinal Tract, Via Natural or Artificial Opening Endoscopic (ICD-10-PCS; CPT 45378; principal; 2023-01-24 13:00)
DX: R19.5 Other fecal abnormalities (principal); K64.8 Other hemorrhoids; E55.9 Vitamin D deficiency, unspecified
CPT/HCPCS: 45378; J2704; J7120

== ENCOUNTER 2023-03-10 10:02 | Outpatient (CLI) | payer OTHER, SELFPAY ==
--- NOTE | ~2023-03-10 | MM_ITS ---
EXAMINATION: MM screening jessika BI w symone HISTORY: Screening mammogram TECHNIQUE: Craniocaudal and mediolateral oblique 3-D tomosynthesis images were obtained and synthetic 2-D images were generated. CAD analysis was submitted and interpreted. COMPARISON: 01/19/2022, 11/16/2020, 10/25/2019 bilateral screening mammogram examinations BREAST PARENCHYMAL COMPOSITION: The breasts are heterogeneously dense, which may obscure small masses . FINDINGS: Subtle microcalcifications noted in the very posterior central left breast on MLO view; briana gnostic left mammogram with magnification views is recommended. Otherwise no suspicious mass, architectural distortion, malignant calcification, skin thickening or r etraction of either breast is detected. IMPRESSION: 1. Subtle microcalcification suggested at the very posterior central left breast on MLO view 2. Diagnostic left mammogram with magnification views is recommended BI-RADS Category 0: Incomplete: Needs additional imaging evaluation. Reviewed, dictated and finalized at location A. IMPRESSION: 1. Subtle microcalcification suggested at the very posterior central left breas t on MLO view 2. Diagnostic left mammogram with magnification views is recommended BI-RADS Category 0: Incomplete: Needs additional imaging evaluation.
--- NOTE | ~2023-03-10 | DEXA_ITS ---
Bone Density Report Name: AIMEE WILKES Age: 52 Sex: Female Ethnicity: White Date of : 1970 Indication: postmenopausal; screening for osteoporosis; height loss; Referring Provider: ERNESTO ROBLEDO Study: Bone densitometry was performed. Exam Date: March 10, 2023 Accession number: [id number] Bone Density: Region BMD T-score Z-score Classification AP Spine(L1-L4) 0.796 -2.3 -1.3 Osteopenia Femoral Neck (Left) 0.683 -1.5 -0.5 Osteopenia Total Hip (Left) 0.786 -1.3 -0.6 Osteopenia Femoral Neck (Right) 0.683 -1.5 -0.5 Osteopenia Total Hip (Right) 0.795 -1.2 -0.6 Osteopenia Total Hip Mean 0.790 -1.3 -0.6 Osteopenia World Health Organization criteria for BMD impression classify patients as: Normal (T-score at or above -1.0), Osteopenia (T-score between -1.0 and -2.5), or Osteoporosis (T-score at or below -2.5). 10-year Fracture Risk(1): Major Osteoporotic Fracture 5.9% Hip Fracture 0.4% Reported Risk Factors: [place] (), Neck BMD=0.683, BMI=36.5 (1) FRAX(R) Version 3.08. Fracture probability calculated for an untreated patient. Fracture probability may be lower if the patient has received treatment. Clinical Information Provided by Patient: Has used the following medications: Vitamin D Patient maximum height was 62 Menopause Age: 50 No regular weight bearing exercise Onset of menses at age 10 Number of children 3 Impression: The patient has low bone mass, based on the Total Spine T-score. The patient has an estimated ten-year risk of hip fracture of 0.4% and an estimated ten-year risk of major fracture of 5.9%, based on the WHO FRAX algorithm. Discussion: BONE DENSITY IS LOW AT ONE OR MORE SKELETAL SITES. This patient's lowest T-score is low at one or more skeletal sites. It meets the World Health Organization's (WHO) criteria for ?low bone mass? (T-score between -1.0 and -2.5). The patient's 10-year risk of fracture as calculated by FRAX is less than the threshold where pharmacological therapy is recommended by the National Osteoporosis Foundation (NOF). However, all treatment decisions require clinical judgment and consideration of individual patient factors, including patient preferences, comorbidities, previous drug use, risk factors not captured in the FRAX model (e.g., frailty, falls, vitamin D deficiency, increased bone turnover, interval significant decline in bone density) and possible under or overestimation of fracture risk by FRAX. The patient should follow a healthful lifestyle (good nutrition with adequate calcium and vitamin D, and appropriate weight-bearing exercise). Follow-Up: Consider repeating this study in 2 to 3 years to reassess this patient's status, or sooner if there is some new clinical indication. Reported by: PALMIRA on 03/10/2023 1
== END 2023-03-10 10:03 | disposition home or self-care (01) ==
LOC: ANHIMG 10:05
PROVIDERS: PCP Internal Medicine Gastroenterology; Visit Provider Obstetrics & Gynecology Gynecology
DX: Z12.31 Encounter for screening mammogram for malignant neoplasm of breast (principal); Z78.0 Asymptomatic menopausal state; R92.8 Other abnormal and inconclusive findings on diagnostic imaging of breast; M85.88 Other specified disorders of bone density and structure, other site; M85.852 Other specified disorders of bone density and structure, left thigh; M85.851 Other specified disorders of bone density and structure, right thigh
CPT/HCPCS: 77063; 77067; 77080

== ENCOUNTER 2023-04-13 11:52 | Outpatient (CLI) | payer OTHER, SELFPAY ==
--- NOTE | ~2023-04-13 | MM_ITS ---
EXAMINATION: MM diagnostic mammo unilat LT HISTORY: Left breast calcifications on screening mammogram TECHNIQUE: Magnification views of the left breast were performed and synthetic 2-D images were genera preeti. CAD analysis was submitted and interpreted. COMPARISON: 03/10/2023, 01/19/2022, 11/16/2020 BREAST PARENCHYMAL COMPOSITION: The breasts are heterogeneously dense, which may obscure small masses . FINDINGS: No suspicious calcifications are identified with magnification views of the left breast. No mass or architectural distortion are identified. IMPRESSION: 1. No mammographic evidence of malignancy. 2. Recommend routine screening mammography in one year. BI-RADS Category 1: Negative Reviewed, dictated and finalized at location A.
== END 2023-04-13 11:53 | disposition home or self-care (01) ==
PROVIDERS: PCP Internal Medicine Gastroenterology; Visit Provider Obstetrics & Gynecology Gynecology
DX: R92.8 Other abnormal and inconclusive findings on diagnostic imaging of breast (principal)
CPT/HCPCS: 77065